=== PATIENT | male | born 1950 | race Caucasian/White ===

== ENCOUNTER 2018-11-27 18:43 | Emergency (ER) | payer BC, MEDICARE ==
--- NOTE | 2018-11-27 18:50 | UC ---
FLU HPI - HPI Summary HPI Summary: 68 yo male presents with 2 days of low grade fever, body aches, and productive cough. Today he was very fatigued and slept most of the day. He took nyquill last night and this improved his symptoms a little bite. He does not smoke, but he did about 3 years ago. He does not feel short of breath, but does feel it is difficult to get a deep breath. Denies sinus symptoms, sore throat, chest pain, rash, abdominal pain, n/v. - History of Current Complaint Stated Complaint: FLU-LIKE SYM Time Seen by Provider: 11/27/18 18:50 Hx Obtained From: Patient Onset/Duration: Sudden Onset Severity Currently: Mild Severity Initially: Moderate Pain Intensity: 5 Pain Scale Used: 0-10 Numeric - Allergy/Home Medications Allergies/Adverse Reactions: Allergies Allergy/AdvReac Type Severity Reaction Status Date / Time No Known Allergies Allergy Verified 11/27/18 18:53 PMH/Surg Hx/FS Hx/Imm Hx Cardiovascular History: Hypertension - Surgical History Surgical History: Yes Surgery Procedure, Year, and Place: appy approx 15 years,. neck surgery c5,c6, c7 fusion - Family History Known Family History: Positive: Unknown - Social History Occupation: Retired Lives: With Family Alcohol Use: Daily Substance Use Type: None Smoking Status (MU): Never Smoked Tobacco - Immunization History Most Recent Influenza Vaccination: never Most Recent Tetanus Shot: up to date Most Recent Pneumonia Vaccination: never Review of Systems All Other Systems Reviewed And Are Negative: Yes Constitutional: Positive: Fever, Fatigue, Other - Body aches Skin: Positive: Negative Eyes: Positive: Negative ENT: Positive: Negative Respiratory: Positive: Cough Cardiovascular: Positive: Negative Gastrointestinal: Positive: Negative Neurovascular: Positive: Negative Neurological: Positive: Negative Psychological: Positive: Negative Physical Exam - Summary Physical Exam Summary: GENERAL: NAD. WDWN. No pain distress. SKIN: No rashes, sores, lesions, or open wounds. HEENT: Head: AT/NC Eyes: Conjunctiva clear without inflammation or discharge. Ears: Hearing grossly normal. TMs intact, no bulging, erythema, or edema. Nose: Nasal mucosa pink and moist. NTTP maxillary and frontal sinus. Throat: Posterior oropharynx without exudates, erythema, or tonsillar enlargement. Uvula midline. NECK: Supple. Nontender. No lymphadenopathy. CHEST: Mild wheezing and decreased breath sounds throughout. No r/r. No accessory muscle use. Breathing comfortably and in no distress. CV: RRR. Without m/r/g. Pulses intact. Cap refill <2seconds NEURO: Alert. PSYCH: Age appropriate behavior. Triage Information Reviewed: Yes Vital Signs: Vital Signs: Temp Pulse Resp BP Pulse Ox 100.2 F 94 20 162/106 94 11/27/18 18:48 11/27/18 18:48 11/27/18 18:48 11/27/18 18:48 11/27/18 18:48 Laboratory Tests 11/27/18 18:58 Influenza A (Rapid) Negative Influenza B (Rapid) Negative Vital Signs: Temp Pulse Resp BP Pulse Ox 100.2 F 94 20 162/106 96 11/27/18 18:48 11/27/18 18:48 11/27/18 18:48 11/27/18 18:48 11/27/18 19:43 Vital Signs Reviewed: Yes Flu Course/Dx - Course Course Of Treatment: POC flu: negative CXR: No radiologist reading after 1800, therefore wet read by myself is negative for PNA. Duoneb: Significant improvement s/p. Feels easier to take a deep breath. Suspect bronchitis vs PNA. His symptoms and exam are suspicious for PNA, therefore I will cover him with zpak and have him f/u if his symptoms do not improve. - Differential Dx/Diagnosis Provider Diagnosis: Bronchitis Discharge - Sign-Out/Discharge Documenting (check all that apply): Patient Departure All imaging exams completed and their final reports reviewed: No - Discharge Plan Condition: Stable Disposition: HOME Prescriptions: Azithromycin TAB* [Zithromax TAB (Z-ESTELITA) 250 mg #6 tabs] 2 tab PO .TODAY, THEN 1 DAILY #1 estelita Patient Education Materials: Acute Bronchitis (ED) Referrals: Jesenia Welsh MD [Primary Care Provider] - Additional Instructions: If you develop a fever, shortness of breath, chest pain, new or worsening symptoms - please call your PCP or go to the ED. Your blood pressure was high at todays visit. Please see your primary provider within 4 weeks for recheck and re-evaluation. - Billing Disposition and Condition Condition: STABLE Disposition: Home
[2018-11-27 18:53] VITALS: BP 162/106
[2018-11-27] MEDS ORDERED: Albuterol/Ipratropium NEB.SOL* Albuterol 2.5 MG/Ipratropium 0.5 MG 3 ML INH ONE (19:00)
[2018-11-27 19:11] LABS: Influenza A Molecular NEGATIVE (Negative); Influenza B Molecular NEGATIVE (Negative)
== END 2018-11-27 19:42 | disposition home or self-care (01) ==
LOC: UCEAST 18:43
DX: J40 Bronchitis, not specified as acute or chronic (principal); I10 Essential (primary) hypertension
CPT/HCPCS: 71046; 99212; A9270-GY; G0463

== ENCOUNTER 2020-09-25 17:30 | Inpatient (IN) ==
[2020-09-25 23:16] LABS: ABS Eosinophils 0.1 10^3/ul (0-0.6); ABS Monocytes 0.6 10^3/ul (0-0.8); ABS Neutrophils 4.7 10^3/ul (1.5-7.7); Eosinophil % 1.6 %; Hematocrit 48 % (42-52); Hemoglobin 15.9 g/dL (14.0-18.0); Lymphocyte % 26.6 %; Mean Corpuscular HGB Conc 34 g/dL (31-36); Mean Corpuscular Hemoglobin 30 pg (27-31); Mean Corpuscular Volume 91 fL (80-94); Platelet Count 217 10^3/uL (150-450); Red Blood Count 5.23 10^6 /uL (4.18-5.48); Red Cell Distribution Width 14 % (10-15); White Blood Count 7.4 10^3/uL (3.5-10.8)
[2020-09-25 23:21] LABS: INR 1.11 (0.82-1.09)
[2020-09-25 23:34] LABS: ALT 46 U/L (7-52); AST 30 U/L (13-39); Albumin 4.7 g/dL (3.2-5.2); Albumin/Globulin Ratio 1.5 (1-3); Alkaline Phosphatase 56 U/L (34-104); Anion Gap 7 mmol/L (2-11); BUN/Creatinine Ratio 14.9 (8-20); Blood Urea Nitrogen 14 mg/dL (6-24); C Reactive Protein < 1.00 mg/L (<8.01); CO2 Carbon Dioxide 29 mmol/L (22-32); Calcium 9.6 mg/dL (8.6-10.3); Chloride 103 mmol/L (101-111); EGFR African American 96.3 (>60); EGFR Non-African American 79.6 (>60); Globulin 3.1 g/dL (2-4); Glucose 107 mg/dL (70-100); Lipase 15 U/L (11.0-82.0); Potassium 3.7 mmol/L (3.5-5.0); Sodium 139 mmol/L (135-145); Total Protein 7.8 g/dL (6.4-8.9)
[2020-09-25 23:40] LABS: Troponin I 0.03 ng/mL (<0.03)
[2020-09-25] MEDS ORDERED: Iohexol 350 (CONTRAST) 500 ML MDV IV ONE (23:42)
[2020-09-26 02:33] LABS: Troponin I 0.03 ng/mL (<0.03)
[2020-09-26] MEDS ORDERED: hydrALAZINE 20 mg/ml 1 ML Vial IV IV SLOW PU ONE (03:32)
[2020-09-26] MEDS: Enoxaparin 40 MG/0.4 ML SYR SUBCUT SCH (05:44)
[2020-09-26 11:14] LABS: Cholesterol 179 mg/dL; HDL Cholesterol 39.3 mg/dL; LDL Cholesterol 112 mg/dL; Triglycerides 138 mg/dL
[2020-09-26 11:41] LABS: Troponin I 0.03 ng/mL (<0.03)
[2020-09-27] MEDS: Enoxaparin 40 MG/0.4 ML SYR SUBCUT SCH (05:54)
[2020-09-27] MEDS ORDERED: hydrALAZINE 20 mg/ml 1 ML Vial IV IV SLOW PU ONE (23:24)
[2020-09-28] MEDS: Enoxaparin 40 MG/0.4 ML SYR SUBCUT SCH (05:40)
[2020-09-28 07:07] LABS: ABS Eosinophils 0.2 10^3/ul (0-0.6); ABS Monocytes 0.6 10^3/ul (0-0.8); ABS Neutrophils 4.8 10^3/ul (1.5-7.7); Eosinophil % 2.6 %; Hematocrit 47 % (42-52); Hemoglobin 15.5 g/dL (14.0-18.0); Lymphocyte % 26.1 %; Mean Corpuscular HGB Conc 33 g/dL (31-36); Mean Corpuscular Hemoglobin 30 pg (27-31); Mean Corpuscular Volume 91 fL (80-94); Platelet Count 210 10^3/uL (150-450); Red Blood Count 5.16 10^6 /uL (4.18-5.48); Red Cell Distribution Width 14 % (10-15); White Blood Count 7.7 10^3/uL (3.5-10.8)
[2020-09-28 07:24] LABS: Calcium 9.3 mg/dL (8.6-10.3); EGFR African American 89.6 (>60); EGFR Non-African American 74.1 (>60); Potassium 3.7 mmol/L (3.5-5.0)
[2020-09-28] MEDS ORDERED: hydrALAZINE 20 mg/ml 1 ML Vial IV IV SLOW PU ONE (11:11)
[2020-09-28] MEDS ORDERED: hydrALAZINE 20 mg/ml 1 ML Vial IV IV SLOW PU PRN (17:50)
[2020-09-29] MEDS: Enoxaparin 40 MG/0.4 ML SYR SUBCUT SCH (06:06)
[2020-09-29 11:45] VITALS: BP 145/86
== END 2020-09-29 14:40 | disposition home or self-care (01) | DRG 305 ==
LOC: ED 17:30 → MEDTELE 09-26 03:15
PROVIDERS: ADMIT Internal Medicine Interventional Cardiology; ATTEND Hospitalist

== ENCOUNTER 2020-10-05 10:37 | Inpatient (IN) ==
[2020-10-05] MEDS ORDERED: Heparin - STEMI 5,000 UNITS/ML 1 ml VIAL IV ONE (11:43)
[2020-10-05] MEDS ORDERED: Heparin 1,000 UNIT/ML 10 ml (10,000 UNITS) CATHLAB/DIALYSIS ONE (11:49)
[2020-10-05] MEDS ORDERED: VERAPAMIL 2.5 MG/ML 2 ML VIAL ** 5 mg/2 ml ONE (11:49)
[2020-10-05] MEDS ORDERED: Heparin 2 UNITS/ML 1000 mls 2,000 ML IV ONE (11:50)
[2020-10-05] MEDS ORDERED: Lidocaine 1% VIAL 10 MG/ML VIAL ONE (11:50)
[2020-10-05] MEDS ORDERED: nitroGLYCERIN DRIP 25,000 MCG/250 ML BTL ONE (11:50)
[2020-10-05] MEDS ORDERED: Iohexol 350 (CONTRAST) 200 ML MDV IV ONE (11:51)
[2020-10-05] MEDS ORDERED: Midazolam 5 mg/5 ml VIAL 1 mg/ml 5 ml VIAL (5 mg) ONE (11:53)
[2020-10-05] MEDS ORDERED: fentaNYL 100 mcg/2 ml 50 MCG/ML VIAL ONE (11:53)
[2020-10-05] MEDS ORDERED: Heparin DRIP 25,000 UNITS BAG 25,000 UNITS/500 ML BAG IV SCH (12:00)
[2020-10-05] MEDS ORDERED: Heparin 5000 UNITS/ML 1 mL VIAL IV SCH (12:00)
[2020-10-05] MEDS ORDERED: Amiodarone IV 150 mg/3 ml VIAL ONE (12:02)
[2020-10-05] MEDS ORDERED: Amiodarone 360 MG IVPREMIX 360 MG/200 ML BAG IV ONE (12:02)
[2020-10-05 12:10] LABS: ABS Lymphocytes 1.3 10^3/ul (1.0-4.8); ABS Monocytes 1.4 10^3/ul (0-0.8); Eosinophil % 0.1 %; Hematocrit 46 % (42-52); Hemoglobin 15.1 g/dL (14.0-18.0); Lymphocyte % 9.1 %; Mean Corpuscular HGB Conc 33 g/dL (31-36); Mean Corpuscular Hemoglobin 30 pg (27-31); Mean Corpuscular Volume 90 fL (80-94); Mean Platelet Volume 7.4 fL (7.4-10.4); Platelet Count 248 10^3/uL (150-450); Red Blood Count 5.13 10^6 /uL (4.18-5.48); Red Cell Distribution Width 13 % (10-15); White Blood Count 14.8 10^3/uL (3.5-10.8)
[2020-10-05 12:15] LABS: Activated Partial Thrombo Time 24.3 seconds (26.0-38.0); INR 1.09 (0.82-1.09)
[2020-10-05 12:26] LABS: Troponin I 26.93 ng/mL (<0.03)
[2020-10-05 12:50] LABS: ALT 133 U/L (7-52); AST 276 U/L (13-39); Albumin 4.9 g/dL (3.2-5.2); Albumin/Globulin Ratio 1.6 (1-3); Alkaline Phosphatase 61 U/L (34-104); Anion Gap 11 mmol/L (2-11); BUN/Creatinine Ratio 15.3 (8-20); Blood Urea Nitrogen 13 mg/dL (6-24); CO2 Carbon Dioxide 27 mmol/L (22-32); Chloride 93 mmol/L (101-111); EGFR African American 108.1 (>60); EGFR Non-African American 89.4 (>60); Glucose 142 mg/dL (70-100); LDL Cholesterol Direct 100 mg/dL; Potassium 3.2 mmol/L (3.5-5.0); Sodium 131 mmol/L (135-145); Total Protein 7.9 g/dL (6.4-8.9)
[2020-10-05] MEDS ORDERED: Bivalirudin 250 MG VIAL ONE (12:53)
[2020-10-05 13:08] LABS: Creatine Kinase 3611 U/L (10-223)
[2020-10-05] MEDS ORDERED: Potassium Chlor 20 meq TAB.ER PO ONE (13:13)
[2020-10-05] MEDS: NS 0.9% 1000 ml BAG 1,000 ML IV SCH ×2 (13:30→21:39)
[2020-10-05 13:58] LABS: ABS Eosinophils 0.1 10^3/ul (0-0.6); ABS Lymphocytes 1.4 10^3/ul (1.0-4.8); ABS Monocytes 1.5 10^3/ul (0-0.8); ABS Neutrophils 12.8 10^3/ul (1.5-7.7); Eosinophil % 0.4 %; Hematocrit 44 % (42-52); Hemoglobin 14.9 g/dL (14.0-18.0); Mean Corpuscular HGB Conc 34 g/dL (31-36); Mean Corpuscular Hemoglobin 30 pg (27-31); Mean Corpuscular Volume 89 fL (80-94); Mean Platelet Volume 7.3 fL (7.4-10.4); Platelet Count 238 10^3/uL (150-450); Red Blood Count 4.93 10^6 /uL (4.18-5.48); Red Cell Distribution Width 13 % (10-15); White Blood Count 15.8 10^3/uL (3.5-10.8)
[2020-10-05 14:09] LABS: Blood Urea Nitrogen 12 mg/dL (6-24); Magnesium 1.7 mg/dL (1.9-2.7)
[2020-10-05 14:16] LABS: Troponin I > 76.00 ng/mL (<0.03)
[2020-10-05] MEDS ORDERED: Magnesium Sulfate IV 3 GM in NS 0.9% 100 ml BAG 100 ML IVPB ONE (14:30)
[2020-10-05] MEDS: KCL 20 MEQ/100 ML IVPREMIX 20 MEQ/100 ML BAG IV SCH ×2 (14:32→17:28)
[2020-10-05 14:54] LABS: CKMB ng/mL 550.7 ng/mL (0.6-6.3)
[2020-10-05 17:58] LABS: Troponin I > 76.00 ng/mL (<0.03)
[2020-10-06 00:51] LABS: Troponin I > 76.00 ng/mL (<0.03)
[2020-10-06 05:17] LABS: ABS Eosinophils 0.1 10^3/ul (0-0.6); ABS Lymphocytes 1.4 10^3/ul (1.0-4.8); ABS Monocytes 1.5 10^3/ul (0-0.8); ABS Neutrophils 6.7 10^3/ul (1.5-7.7); Eosinophil % 0.6 %; Hematocrit 42 % (42-52); Hemoglobin 14.3 g/dL (14.0-18.0); Lymphocyte % 14.2 %; Mean Corpuscular HGB Conc 35 g/dL (31-36); Mean Corpuscular Hemoglobin 31 pg (27-31); Mean Corpuscular Volume 90 fL (80-94); Mean Platelet Volume 7.2 fL (7.4-10.4); Platelet Count 237 10^3/uL (150-450); Red Blood Count 4.64 10^6 /uL (4.18-5.48); Red Cell Distribution Width 14 % (10-15); White Blood Count 9.6 10^3/uL (3.5-10.8)
[2020-10-06 05:38] LABS: Anion Gap 7 mmol/L (2-11); BUN/Creatinine Ratio 13.1 (8-20); Blood Urea Nitrogen 13 mg/dL (6-24); CO2 Carbon Dioxide 24 mmol/L (22-32); Calcium 8.6 mg/dL (8.6-10.3); Chloride 102 mmol/L (101-111); EGFR African American 90.7 (>60); Glucose 127 mg/dL (70-100); Potassium 3.9 mmol/L (3.5-5.0); Sodium 133 mmol/L (135-145)
[2020-10-06 05:44] LABS: Troponin I > 76.00 ng/mL (<0.03)
[2020-10-06] MEDS: Multivitamins/Minerals TAB PO SCH (09:03)
[2020-10-06 09:36] LABS: Magnesium 2.4 mg/dL (1.9-2.7)
[2020-10-06 09:42] LABS: ALT 119 U/L (7-52); AST 294 U/L (13-39)
[2020-10-06] MEDS ORDERED: Pneumococcal Vac 23-Polyvalent IM ONE (12:00)
[2020-10-06] MEDS ORDERED: Bimatoprost 0.01% OPHTH (NF) 2.5 ML BTL BOTH EYES SCH (21:00)
[2020-10-06] MEDS ORDERED: Latanoprost 0.005% 2.5 ml BTL BOTH EYES SCH (21:00)
[2020-10-07 06:51] LABS: ABS Eosinophils 0.2 10^3/ul (0-0.6); ABS Lymphocytes 1.8 10^3/ul (1.0-4.8); ABS Monocytes 1.1 10^3/ul (0-0.8); ABS Neutrophils 5.8 10^3/ul (1.5-7.7); Eosinophil % 2.7 %; Hematocrit 41 % (42-52); Hemoglobin 14.1 g/dL (14.0-18.0); Lymphocyte % 19.9 %; Mean Corpuscular HGB Conc 35 g/dL (31-36); Mean Corpuscular Hemoglobin 31 pg (27-31); Mean Corpuscular Volume 89 fL (80-94); Mean Platelet Volume 7.1 fL (7.4-10.4); Platelet Count 214 10^3/uL (150-450); Red Blood Count 4.57 10^6 /uL (4.18-5.48); Red Cell Distribution Width 13 % (10-15); White Blood Count 8.9 10^3/uL (3.5-10.8)
[2020-10-07 07:14] LABS: EGFR African American 87.6 (>60); EGFR Non-African American 72.4 (>60)
[2020-10-07 07:25] LABS: Troponin I 46.26 ng/mL (<0.03)
[2020-10-07] MEDS: Multivitamins/Minerals TAB PO SCH (09:28)
[2020-10-07 11:54] VITALS: BP 102/65
== END 2020-10-07 14:15 | disposition home or self-care (01) | DRG 247 ==
LOC: ED 10:37 → CHICATH 11:45 → ICU 12:59 → MEDTELE 10-06 14:55